=== PATIENT | female | born 1980 | race Caucasian/White ===

== ENCOUNTER 2017-10-11 03:16 | Emergency (ER) | payer MEDICAID ==
[~2017-10-11] VITALS: Ht 165.1 cm; Wt 63.5 kg
[2017-10-11] MEDS ORDERED: KEFLEX500 M1 PO (04:11)
[2017-10-11 04:15] VITALS: BP 128/76
== END 2017-10-11 04:15 | disposition home or self-care (01) ==
LOC: M.ERS 03:16
DX: S61.411A Laceration without foreign body of right hand, initial encounter (principal); W25.XXXA Contact with sharp glass, initial encounter; Y93.89 Activity, other specified; Y92.89 Other specified places as the place of occurrence of the external cause; Y99.8 Other external cause status